=== PATIENT | female | born 1975 | race Caucasian/White ===

== ENCOUNTER 2023-07-25 10:43 | Outpatient (AMB) | payer OTHER, SELFPAY ==
[2023-07-25 10:54] VITALS: BP 118/70; PULSE 81; RESP 12; TEMP 36.1; O2SAT 99; BMI 31.8
--- NOTE | 2023-07-25 10:54 | A.OFFPC_ITS ---
Vital Signs 07/25/23 10:54 Height 5 ft 6 in Weight 197 lb 3 oz BMI 31.8 BP 118/70 Blood Pressure Location Rt brachial Position Sitting Respiration 12 Pulse 81 Pulse Source Pulse Oximeter Temp 97 F Temp Source Temporal Artery Scan Pulse Oximetry (%) 99 Oxygen Delivery Method Room Air Intake Visit Reasons: est care Intake Note: Patient states that shes a smoker and has recently been experiencing pressure in lungs and has been nervous when it does occur. Patient states that left heel turns purplish red and she doesnt not know why. Patient would like to to get into treatment for smoking as well. Patient would prefer to geth the nictonie patches to help quit smoking. Wet Silk Hanger Required: No Accompanied by: Self / Same As Patient Allergies Seasonal Allergies Allergy (Mild, Verified 07/25/23 11:01) Itchy Eyes Tobacco use date assessed: 07/25/23 Dental Screening Dental Screen Date: 07/25/23 Did you have a dental visit in the last 12 months?: No Did you have a dental problem in the last 6 months where you did not have access to dental care?: No HPI est care HPI Details New patient Prior PCP:?Long ago/unknown Last office visit/CPE: years Acute issue(s): Smoker Chest pressure in bed PMHx: Asthma, history of plantar fasciitis SurgHx: [facility] FHx: Dad: Skin CA, HLD. Mom: HLD, ?Thyroid, Skin CA. Sister: Psychiatric issues. SocHx: Smoker - 1 ppd then 1/2 ppd since early 2022. EtOH 3-4 days a week. No Drugs. 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 1. Little interest or pleasure in doing things: not at all 2. Feeling down, depressed, or hopeless: several days 3. Trouble falling or staying asleep, or sleeping too much: more than half the days 4. Feeling tired or having little energy: more than half the days 5. Poor appetite or overeating: not at all 6. Feeling bad about yourself - or that you are a failure or have let yourself or your family down: several days 7. Trouble concentrating on things, such as reading the newspaper or watching television: not at all 8. Moving or speaking so slowly that other people could have noticed. Or the opposite - being so fidgety or restless that you have been moving around a lot more than usual: not at all 9. Thoughts that you would be better off or of hurting yourself in some way: not at all Total score: 6 Source: Developed by Drs. Carrington Cabrera, Alanna Lemos, Tiburcio Bowser and colleagues, with an educational priya from [employer]. Thrive Questionnaire I am a: Patient What is your living situation today?: I have a steady place to live Within the past 12 months, did the food you bought not last and you didn't have the money to get more?: Never true Within the past 12 months, did you worry whether your food would run out before you got money to buy more?: Never true Do you have trouble paying for medicines?: No Do you have trouble getting transportation to medical appointments?: No Do you have trouble paying your heating and electricity bill?: No Do you have trouble taking care of your child, family member or friend?: No Do you have trouble with day-to-day activities such as bathing, preparing meals, shopping, managing finances, etc.?: No Are you currently unemployed and looking for a job?: No Are you interested in more education?: No AUDIT C Alcohol Use Questionnaire (AUDIT-C) 1. How often do you have a drink containing alcohol?: 4 or more times a week 2. How many drinks containing alcohol do you have on a typical day when you are drinking?: 5 or 6 3. How often do you have six or more drinks on one occasion?: Weekly Total Score: 9 MARYAM-7 AMB Questionnaire MARYAM-7 Date MARYAM - 7 assessed: 07/25/23 Feeling nervous, anxious, or on edge: 1 = Several days Not being able to stop or control worryin = Several days Worrying too much about different things: 1 = Several days Trouble relaxin = Several days Being so restless that it is hard to sit still: 0 = Not at all Becoming easily annoyed or irritable: 0 = Not at all Feeling afraid as if something awful might happen: 0 = Not at all Total MARYAM-7 score (0-4 normal; 5-9 mild; 10-14 moderate; 15-21 severe): 4 Source: Developed by Drs. Carrington Cabrera, Alanna Lemos, Tiburcio Bowser and colleagues, with an educational priya from [employer]. ACT Questionnaire In the past 4 weeks, how much of the time did your asthma keep you from getting as much done at work, school or at home?: None of the time During the past 4 weeks, how often have you had shortness of breath?: 1-2 times a week During the past 4 weeks, how often did your asthma symptoms wake you up at night or earlier than usual in the morning?: Once a week During the past 4 weeks, how often have you had to use your rescue inhaler or nebulizer medication?: Not at all How would you rate your asthma control during the past 4 weeks?: Well controlled Score: 21 Review of Systems Const Denies chills, Denies fatigue, Denies fever(s), Denies headache(s) and Denies weakness ENT Denies dizziness and Denies headache(s) Card Denies chest pain, Denies lightheadedness, Denies dyspnea and Denies other (Palpitations) Resp Denies cough, Denies dyspnea, Denies wheezing and Denies other ( shortness of breath) Musc Details: L heel pain Denies numbness and Denies tingling Neuro Denies dizziness, Denies headache(s), Denies numbness, Denies tingling, Denies paresthesias and Denies weakness Psych Denies anxiety and Denies depression Endo Denies fatigue Aller/Immun Denies wheezing Physical exam (Primary Care) Vital Signs: Last Vital Signs Temp 97 F 07/25/23 10:54 Pulse 81 07/25/23 10:54 Resp 12 07/25/23 10:54 BP 118/70 07/25/23 10:54 Pulse Ox 99 07/25/23 10:54 Oxygen Delivery Method Room Air 07/25/23 10:54 BMI result Body Mass Index 31.8 Tobacco/Smoking Status: Tobacco use Status Tobacco use date assessed 07/25/23 07/25/23 11:05 Patient Tobacco Use Status Current everyday Tobacco 07/25/23 11:05 Tobacco use type Cigarette 07/25/23 11:05 e-Cigarette/Vaping Use Never Used 07/25/23 11:05 PHQ-9: PHQ-9 Score PHQ-9: Total score 6 07/25/23 11:17 Const General: no acute distress and well developed Nutritional Appearance: well nourished Orientation/consciousness: patient oriented x3 HENMT Head: Yes normocephalic and Yes atraumatic Eyes General: appearance normal, both eyes and all related structures Pupils: Equal, round and reactive pupils present EOM: EOMs intact bilaterally Resp Other: Distant breath sounds Effort & Inspection: normal respiratory effort Cardio Rate: regular rate Rhythm: regular rhythm Heart sounds: S1 normal heart sound present, S2 normal heart sound present, no gallops, no murmurs and no rubs Neuro General: patient oriented x3 and gait normal Cranial nerves: Yes Equal, round and reactive pupils present Psych Affect: normal affect Assessment and Plan Assessment & Plan (1) Smoker: Code(s): F17.200 - Nicotine dependence, unspecified, uncomplicated Plan: Encouraged cessation She can use nicotine patches and advised we work at weaning these down to the lowest does as soon as possible. She is planning a quit date in July Checking chest x-ray (2) Asthma: Code(s): J45.909 - Unspecified asthma, uncomplicated Plan: As above, advised smoking cessation Continue Ventolin as needed (3) Chest pressure: Code(s): R07.89 - Other chest pain Plan: Patient gets some chest pressure which does not seem to be associated with exertion. EKG: Normal sinus rhythm, normal axis, no hypertrophy, no ST-T-wave changes Check chest x-ray (4) Pain of left heel: Code(s): M79.672 - Pain in left foot Plan: Check x-ray Patient has lay out inspector to has seen her for some plantar fasciitis in the past and she could follow up with her if needed. (5) Laboratory exam ordered as part of routine general medical examination: Code(s): Z00.00 - Encounter for general adult medical examination without abnormal findings Plan: Check labs Orders: Orders Lipid Panel Today Z00.00 - Encounter for general adult medical examination without abnormal findings TSH reflex Free T4 Today Z00.00 - Encounter for general adult medical examination without abnormal findings XR chest 2V Today F17.200 - Nicotine dependence, unspecified, uncomplicated, R09.89 - Other specified symptoms and signs involving the circulatory and respiratory systems Comprehensive [place]. Panel Fast Today Z00.00 - Encounter for general adult medical examination without abnormal findings Microalbumin, Random (w Creat) Today I10 - Essential (primary) hypertension UA and rflx microscopic Today Z00.00 - Encounter for general adult medical examination without abnormal findings XR foot LT min 3V Today M79.672 - Pain in left foot Complete Blood Count Auto Diff Today Z00.00 - Encounter for general adult medical examination without abnormal findings Medications: New nicotine 1 patch topical DAILY 28 days 28 ea 3RF albuterol sulfate 90 mcg/actuation (Ventolin HFA) 2 puffs inhalation Q4-6H PRN 8.5 grams 3RF shortness of breath or wheezing 30 days Coding Level of Care Code New Pt Level 4 (99516) Diagnoses Smoker F17.200 Asthma J45.909 Chest pressure R07.89 Pain of left heel M79.672 Laboratory exam ordered as part of routine general medical examination Z00.00
== END 2023-07-25 12:13 | disposition home or self-care (01) ==
PROVIDERS: PCP Hospitalist; Visit Provider Family Medicine
DX: F17.200 Nicotine dependence, unspecified, uncomplicated (principal); J45.909 Unspecified asthma, uncomplicated; R07.89 Other chest pain; M79.672 Pain in left foot; Z00.00 Encounter for general adult medical examination without abnormal findings
CPT/HCPCS: 99204

== ENCOUNTER 2023-07-25 12:17 | Outpatient (REF) | payer OTHER, SELFPAY ==
[2023-07-25 14:07] LABS: MANUAL DIFF FLAG NO
[2023-07-25 14:17] LABS: Basophils Percent Auto 0.4 % (0-2); Eosinophils Absolute Auto 0.1 X10*3/uL (0.0-0.4); Eosinophils Percent Auto 1.6 % (0-4); Hematocrit 42.8 % (37.0-47.0); Hemoglobin 14.4 g/dl (12.0-16.0); Imm Gran Abs Auto 0.02 X10*3/uL (0.00-0.03); Imm Gran Pct Auto 0.3 % (0.0-0.4); Lymphocytes Absolute Auto 2.3 X10*3/uL (1.2-4.9); Lymphocytes Percent Auto 28.8 % (20-40); Mean Corpuscular HGB Conc 33.6 g/dl (31.0-35.0); Mean Corpuscular Hemoglobin 32.5 pg (27.0-33.0); Mean Corpuscular Volume 96.6 fL (80.0-98.0); Mean Platelet Volume 11.3 fL (9.4-12.3); Monocytes Absolute Auto 0.6 X10*3/uL (0.1-1.2); Monocytes Percent Auto 7.8 % (2-11); Neutrophils Absolute Auto 4.9 x10*3/uL (2.0-8.3); Neutrophils Percent Auto 61.1 % (45-73); Platelet Count 275 X10*3/uL (160-400); Red Blood Count 4.43 X10*6/uL (4.20-5.50); Red Cell Distribution Width 13.2 % (11.0-16.0)
[2023-07-25 14:21] LABS: Appearance Urine Clear; Color Urine Yellow; Glucose Urine UA Negative (Negative); Leukocyte Esterase Urine Negative (Negative); Nitrite Urine Negative (Negative); PH 7.5 (5.0-9.0); Urine Blood Negative (Negative); Urine Ketones Negative (Negative); Urine Protein Negative (Neg-Trace)
[2023-07-25 14:35] LABS: Alanine Aminotransferase 16 U/L (0-31); Albumin Level 4.5 g/dL (3.5-5.0); Alkaline Phosphatase 87 U/L (39-117); Anion Gap 14 (12-20); Aspartate Amino Transferase 22 U/L (5-31); Bilirubin Total 0.6 mg/dL (0.0-1.0); Blood Urea Nitrogen 9 mg/dL (9-16); Calcium 9.7 mg/dL (8.4-10.2); Carbon Dioxide 25 mmol/L (22-29); Chloride 105 mmol/L (96-108); Cholesterol 197 mg/dL (<200); Estimated Glomerular Filt Rate > 60; Glucose Fasting 101 mg/dL (60-99); HDL Cholesterol 93 mg/dL (>40); LDL Cholesterol Calculated 91 mg/dL (<100); Potassium 4.6 mmol/L (3.3-5.1); Sodium 139 mmol/L (135-145); Total Protein 7.4 g/dL (6.5-8.0); Triglycerides 68 mg/dL (<150)
[2023-07-25 14:51] LABS: Creatinine Urine 41.96 mg/dL; Microalbumin Urine < 5.0 mg/L
[2023-07-25 14:55] LABS: TSH reflex Free T4 1.33 uIU/mL (0.32-4.0)
== END 2023-07-25 12:18 | disposition home or self-care (01) ==
LOC: HO.WFDLDS 12:17
PROVIDERS: Visit Provider Family Medicine
DX: Z00.00 Encounter for general adult medical examination without abnormal findings (principal); I10 Essential (primary) hypertension
CPT/HCPCS: 36415; 80053; 80061; 81003; 82570; 84443; 85025

== ENCOUNTER 2023-10-17 13:46 | Outpatient (AMB) | payer OTHER, SELFPAY ==
--- NOTE | 2023-10-17 13:50 | A.OFFPC_ITS ---
Vital Signs 10/17/23 13:53 Height 5 ft 6 in Weight 193 lb 8 oz BMI 31.2 BP 118/76 Blood Pressure Location Rt brachial Respiration 16 Pulse 72 Pulse Source Pulse Oximeter Pulse Oximetry (%) 98 Intake Visit Reasons: CPE with f/u labs and health maintenanc Intake Note: Patient is here to follow up on labs, and x-rays. Allergies Seasonal Allergies Allergy (Mild, Verified 10/17/23 13:58) Itchy Eyes Tobacco use date assessed: 10/17/23 HPI CPE with f/u labs and health maintenanc HPI Details 48 y/o female presents for a CPE with f/ u labs and health maintenance. Labs were drawn 07/25/23. Reviewed labs with pt. Elevated fasting glucose of 101. Triglyceridides 68. TC 197. LDL 91. HDL 93. Chest x-ray 08/01/23 was fine. 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 Carrington Cabrera, Alanna Lemos, Tiburcio Bowser and colleagues, with an educational priya from [employer]. Review of Systems Const Denies chills, Denies fatigue, Denies fever(s), Denies headache(s) and Denies weakness Eyes Denies change in vision ENT Denies dizziness, Denies headache(s), Denies hearing loss, Denies nasal congestion, Denies sinus pain, Denies sinus pressure and Denies sore throat Card Denies chest pain, Denies lightheadedness, Denies dyspnea and Denies other (palpitations) Resp Denies cough, Denies dyspnea and Denies wheezing GI Denies abdominal pain, Denies melena, Denies hematochezia, Denies change in bowel habits, Denies dyspepsia and Denies nausea Denies hematuria and Denies dysuria Musc Denies abnormal gait, Reports back pain, Denies myalgias, Denies arthralgias, Denies numbness and Denies tingling Skin/Breast Denies rash, Denies unusual bruising and Denies wounds Neuro Denies abnormal gait, Denies dizziness, Denies headache(s), Denies memory loss, Denies numbness, Denies Sensory deficit (Neuro), Denies tingling and Denies weakness Psych Denies anxiety, Denies depression and Denies memory loss Endo Denies cold intolerance, Denies fatigue, Denies heat intolerance, Denies polyd ipsia and Denies polyuria [place]/Lymph Denies easy bleeding and Denies easy bruising Aller/Immun Denies wheezing Physical exam (Primary Care) Vital Signs: Last Vital Signs Pulse 72 10/17/23 13:53 Resp 16 10/17/23 13:53 BP 118/76 10/17/23 13:53 Pulse Ox 98 10/17/23 13:53 BMI result Body Mass Index 31.2 Tobacco/Smoking Status: Tobacco use Status Tobacco use date assessed 10/17/23 10/17/23 14:01 Patient Tobacco Use Status Current everyday Tobacco 10/17/23 13:52 Tobacco use type Cigarette 10/17/23 13:52 e-Cigarette/Vaping Use Never Used 10/17/23 13:52 Const General: no acute distress, well developed, alert and awake Nutritional Appearance: well nourished Orientation/consciousness: patient oriented x3 HENMT Head: Yes normocephalic and Yes atraumatic Ears: hearing grossly normal bilaterally and TM's normal bilaterally General nose exam: Normal external nose present and Normal nares present Mouth: Normal oral and palatal mucosa present and moist mucous membranes Teeth and gingiva: dentition normal Throat: Yes posterior oropharynx normal Eyes General: appearance normal, both eyes and all related structures Pupils: Equal, round and reactive pupils present and Pupil accommodation reflex normal EOM: EOMs intact bilaterally Neck Neck: Yes normal visual inspection, Yes no lymphadenopathy and Yes trachea midline Thyroid: Thyroid normal Carotids: no bruits Lymphatic: no lymphadenopathy noted Chest Chest palpation & inspection: normal inspection of the chest Resp Effort & Inspection: normal respiratory effort Auscultation: clear to auscultation bilaterally Cardio Rate: regular rate Rhythm: regular rhythm Heart sounds: S1 normal heart sound present, S2 normal heart sound present, no gallops, Murmur heart sound present (2/6 Murmur loudest over the mitral and aortic region ) and no rubs Bruits: no abdominal aortic bruits and no carotid bruits GI Palpation (GI): No Abdominal aortic bruit present, Soft to palpation, nontender, No hepatosplenomegaly present and No Rebound tenderness present Auscultation: normal bowel sounds General: Yes no CVA tenderness Back/Spine/Pelvis Back: no CVA tenderness Cervical Spine: cervical ROM normal and No Cervical spine tenderness Thoracic/Lumbar Spine: thoraco-lumbar ROM normal, No pain with thoraco-lumbar ROM, No thoracic spinal tenderness and No lumbar spinal tenderness Skin Lesions: no lesions Rashes: no rashes Trauma: no lacerations or abrasions Wounds: no wounds Nails: normal Neuro General: patient oriented x3 Cranial nerves: Yes Equal, round and reactive pupils present Cognition (Neuro): normal cognition Gait exam (Neuro): Normal gait present Motor exam (neuro): 5/5 motor strength present throughout Sensory Exam: No Sensory deficit (Neuro) Deep tendon reflexes (DTR's): Right patellar reflex intensity grade: 2+ and Left patellar reflex intensity grade: 2+ Extrem General: Yes normal to inspection and No edema Psych Appearance: grossly normal Affect: normal affect Attitude: cooperative Thought process: Normal thought process present Assessment and Plan Assessment & Plan (1) Adult general medical exam: Code(s): Z00.00 - Encounter for general adult medical examination without abnormal findings Plan: 48-year-old?female?presents?for?complete?physical?exam Encouraged?healthy?diet?with?active?lifestyle?and?plenty?of?exercise (2) Chest pressure: Code(s): R07.89 - Other chest pain Plan: This?has?resolved However,?she?does?have?a?grade?2/6?murmur?at?aortic?and?mitral?valve?region Checking?echocardiogram (3) Screening for cervical cancer: Code(s): Z12.4 - Encounter for screening for malignant neoplasm of cervix Plan: Followed?by?numerical control lathe operator?and?has?an?upcoming?appointment?in?October (4) Breast cancer screening by mammogram: Code(s): Z12.31 - Encounter for screening mammogram for malignant neoplasm of breast Plan: Patient?has?mammogram?scheduled?in?October?via?numerical control lathe operator (5) Low back pain: Code(s): M54.50 - Low back pain, unspecified Plan: Referred?for?physical?therapy Can?use?Tylenol?and?topical?NSAID (6) Screening for colon cancer: Code(s): Z12.11 - Encounter for screening for malignant neoplasm of colon Plan: Referred?to?Gastroenterology (7) Screening for colon cancer: Code(s): Z12.11 - Encounter for screening for malignant neoplasm of colon (8) Murmur: Code(s): R01.1 - Cardiac murmur, unspecified Plan: 11/05?murmur?heard?over?aortic?and?mitral?region Echocardiogram?ordered Orders: Orders PT Evaluation and Treatment Today M54.50 - Low back pain, unspecified CA echo transthoracic complete Today R01.1 - Cardiac murmur, unspecified Referrals Gastroenterology Referral Z12.11 - Encounter for screening for malignant neoplasm of colon Coding Level of Care Code Est Pt Level 3 (21997) Est Pt Prev Care 40-64y(81153) Diagnoses Adult general medical exam Z00.00 Chest pressure R07.89 Screening for cervical cancer Z12.4 Breast cancer screening by mammogram Z12.31 Low back pain M54.50 Screening for colon cancer Z12.11 Murmur R01.1
[2023-10-17 13:53] VITALS: BP 118/76; PULSE 72; RESP 16; O2SAT 98; BMI 31.2
== END 2023-10-17 15:00 | disposition home or self-care (01) ==
PROVIDERS: PCP Family Medicine; Visit Provider Family Medicine
DX: Z00.00 Encounter for general adult medical examination without abnormal findings (principal); R01.1 Cardiac murmur, unspecified; M54.50 Low back pain, unspecified
CPT/HCPCS: 99213; 99396

== ENCOUNTER 2023-11-03 09:21 | Outpatient (AMB) | payer OTHER, SELFPAY ==
[2023-11-03 09:24] VITALS: BP 122/72; PULSE 90; O2SAT 99; BMI 31.3
--- NOTE | 2023-11-03 09:24 | MHC.PC.OV ---
Vital Signs 11/03/23 09:24 Height 5 ft 6 in Weight 194 lb BMI 31.3 BP 122/72 Blood Pressure Location Lt brachial Position Sitting Pulse 90 Pulse Source Pulse Oximeter Pulse Oximetry (%) 99 Oxygen Delivery Method Room Air Intake Visit Reasons: ? UTI Intake Note: Patient is here with UTI for 3-4 days, she states she has symptoms of frequecy, and a little burning. Allergies Seasonal Allergies Allergy (Mild, Verified 11/03/23 09:29) Itchy Eyes Tobacco use date assessed: 11/03/23 HPI ? UTI HPI Details 48 y/o female presents with ? UTI. Pt reports symptoms x3-4 days. She reports urinary frequency and some dysuria. 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 Carrington Cabrera, Alanna Lemos, Tiburcio Bowser and colleagues, with an educational priya from [employer]. Review of Systems Const Denies chills, Denies fatigue, Denies fever(s), Denies headache(s) and Denies weakness ENT Denies dizziness and Denies headache(s) Card Denies dyspnea Resp Denies cough, Denies dyspnea, Denies wheezing and Denies other (shortness of breath) Details: Urinary frequency Reports dysuria Musc Denies numbness and Denies tingling Neuro Denies dizziness, Denies headache(s), Denies numbness, Denies tingling and Denies weakness Psych Denies anxiety and Denies depression Endo Denies fatigue Aller/Immun Denies wheezing Physical exam (Primary Care) Vital Signs: Last Vital Signs Pulse 90 11/03/23 09:24 BP 122/72 11/03/23 09:24 Pulse Ox 99 11/03/23 09:24 Oxygen Delivery Method Room Air 11/03/23 09:24 BMI result Body Mass Index 31.3 Tobacco/Smoking Status: Tobacco use Status Tobacco use date assessed 11/03/23 11/03/23 09:33 Patient Tobacco Use Status Current everyday Tobacco 11/03/23 09:33 Tobacco use type Cigarette 11/03/23 09:33 e-Cigarette/Vaping Use Never Used 11/03/23 09:33 Const General: well developed; No acute distress Nutritional Appearance: well nourished Orientation/consciousness: patient oriented x3 HENMT Head: Yes normocephalic and Yes atraumatic Eyes General: appearance normal, both eyes and all related structures Pupils: Equal, round and reactive pupils present EOM: EOMs intact bilaterally Resp Effort & Inspection: normal respiratory effort Neuro General: patient oriented x3 and gait normal Cranial nerves: Yes Equal, round and reactive pupils present Psych Affect: normal affect Results AMB Urinalysis Dipstick UR Leukocytes Negative Last Edit by Tia Mortensen CMA on 11/03/23 09:39 UR Nitrite Negative Last Edit by Tia Mortensen CMA on 11/03/23 09:39 UR Urobilinogen Normal Last Edit by Tia Mortensen CMA on 11/03/23 09:39 UR Protein 30 Last Edit by Tia Mortensen CMA on 11/03/23 09:39 UR Ph 6.0 Last Edit by Tia Mortensen CMA on 11/03/23 09:39 UR Blood Moderate Last Edit by Tia Mortensen CMA on 11/03/23 09:39 UR Specific [place] 1.030 Last Edit by Tia Mortensen CMA on 11/03/23 09:39 UR Ketone Negative Last Edit by Tia Mortensen CMA on 11/03/23 09:39 UR Bilirubin Negative Last Edit by Tia Mortensen CMA on 11/03/23 09:39 UR Glucose Negative Last Edit by Tia Mortensen CMA on 11/03/23 09:39 Assessment and Plan Assessment & Plan (1) Dysuria: Code(s): R30.0 - Dysuria Plan: Symptoms?with?urine?dip?are?suspicious?for?UTI. Start?Macrobid Hydrate?well Will?send?urine?for?urinalysis?with?culture?and?sensitivities. Orders: Orders Urine Culture Today R30.0 - Dysuria AMB Urinalysis Dipstick Today R30.0 - Dysuria UA and rflx microscopic Today R30.0 - Dysuria, Z00.00 - Encounter for general adult medical examination without abnormal findings Medications: New nitrofurantoin monohyd/m-cryst 100 mg (Macrobid) must administer with a meal/food 100 mg PO BID 14 caps 0RF 7 days Coding Level of Care Code Est Pt Level 3 (05122) Diagnoses Dysuria R30.0
== END 2023-11-03 09:43 | disposition home or self-care (01) ==
PROVIDERS: PCP Family Medicine; Visit Provider Family Medicine
DX: R30.0 Dysuria (principal)
CPT/HCPCS: 81002; 99213

== ENCOUNTER 2023-11-03 09:43 | Outpatient (REF) | payer OTHER, SELFPAY | END 2023-11-03 09:44 | disposition home or self-care (01) | LOC: HO.LAB 09:43 | PROVIDERS: Visit Provider Family Medicine | DX: Z00.00 Encounter for general adult medical examination without abnormal findings (principal); R30.0 Dysuria | CPT/HCPCS: 81001; 87086; 87088; 87186 ==

== ENCOUNTER → 2023-11-14 10:39 | Outpatient (REF) | payer OTHER, SELFPAY ==
--- NOTE | 2023-11-14 10:41 | CA_ITS ---
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 The calculated ejection fraction is 66% by biplane method. - No obvious valvular pathology seen on this study. Findings Left Ventricle Normal left ventricular cavity size. There is normal left ventricular wall thickness. The left ventricular systolic function is normal. The calculated ejection fraction is 66% by biplane method. There is no evidence of regional wall motion abnormalities. Diastolic function is normal for age. LV peak GLS -21.4%. Right Ventricle Normal right ventricular cavity size and systolic function. Atria Both atria are normal in size. Aortic Valve There is a normal trileaflet aortic valve. There is no aortic valve stenosis. There is no aortic valve regurgitation. Mitral Valve The mitral valve appears normal. There is no mitral valve regurgitation. There is no mitral valve stenosis. Pulmonic Valve The pulmonic valve is likely normal. Tricuspid Valve Normal tricuspid valve structure. There is trace tricuspid valve regurgitation. There is no evidence of pulmonary hypertension. Great Vessels The aorta was not well visualized. The aortic annulus is normal in size. Venous The inferior vena cava is normal in size and collapses greater than 50% with inspiration. Pericardium/Pleural There is no evidence of pericardial effusion. Prior Study Comparison No prior study available for comparison. Recommendations, Care & Conclusions No obvious valvular pathology seen on this study. Measurements 2D Linear Measurements IVSd: 0.66 0.6-0.9/0.6-1.0 cm LVIDd: 5.23 3.9-5.3/4.2-5.9 cm LVIDd Index: 2.67 2.4-3.2/2.2-3.1 cm/m2 LVIDs: 2.83 2.0-3.6 cm LVPWd: 0.73 0.7-1.1 cm LA Diam: 3.60 2.7-3.8/3.0-4.0 cm LAIDs Index: 1.84 1.5-2.3 cm/m2 LV Mass: 153.49 67-162/88-224 g LV Mass Index: 78.31 43-95/49-115 g/m2 LVOT Diam: 2.00 3.0+(-)1.3 cm 2D Systolic Function EF 4C: 64.60 >55% EF 2C: 66.40 >55% EF BiP: 65.90 >55% Mitral Valve MV Pk E: 0.87 MV PK A: 0.64 MV Decel Time: 200.00 E/A: 1.40 E'Lateral: 12.50 E'Medial: 9.79 E/E' Med: 8.90 E/E' Lat: 7.00 PHT: 58.00 MVA PHT: 3.79 Decel Mckinley: 4.37 Aortic Valve AoV Pk Smith: 1.73 AoV Mn Smith: 1.15 AoV VTI: 0.41 AoV Pk Grad: 12.00 Aov Mn Grad: 6.00 BOBBI Cont.VTI: 2.12 LVOT LVOT Pk Smith: 1.17 LVOT Mn Smith: 0.77 LVOT VTI: 0.28 LVOT Pk Grad: 5.00 LVOT Mn Grad: 3.00 LVOT Diam: 2.00 LVOT Area: 3.14 Diastolic Function MV Pk E: 0.87 MV Pk A: 0.64 E/A: 1.40 E'Medial: 9.79 E/E' Med: 8.90 E' Laterial: 12.50 E/E' Lat: 7.00 Right Ventricle TAPSE (mm): 26.40 TVS' Smiht: 12.60 Tricuspid Valve TR Pk Smith: 2.00 TR Pk Grad: 16.00 RA Press: 3.00 RVSP: 19.00 Great Vessels Aorta Sinus of Valsalva: 3.20 2.0-3.5 cm Ao Asc: 3.00 2.1-3.4 cm Pulmonary Valve PV Pk Smith: 1.15 Peak PV Grad: 5.00 Updated in Other Vendor System with Status of Final Abhijeet Santos MD electronically signed on 11/14/2023 2:19:56 PM with status of Final
== END ==
LOC: HO.CARD 10:39
PROVIDERS: PCP Family Medicine; Visit Provider Family Medicine
DX: R01.1 Cardiac murmur, unspecified (principal)
CPT/HCPCS: 93306; 93356

== ENCOUNTER → 2023-11-14 10:41 | Outpatient (BNV) | payer OTHER, SELFPAY | PROVIDERS: PCP Family Medicine; Visit Provider Internal Medicine | DX: R01.1 Cardiac murmur, unspecified (principal) | CPT/HCPCS: 93306 ==

== ENCOUNTER 2023-11-28 16:04 | Outpatient (AMB) | payer OTHER, SELFPAY ==
--- NOTE | 2023-11-28 15:59 | MHC.PC.OV ---
Intake Visit Reasons: follow up murmur,back pain Intake Note: Patient is following up on heart murmur and back pain. Allergies Seasonal Allergies Allergy (Mild, Verified 11/28/23 16:00) Itchy Eyes Tobacco use date assessed: 11/28/23 HPI follow up murmur,back pain HPI Details 48 y/o female presents to f/u murmur, back pain via telemedicine. Had ordered an echocardiogram. Also ordered physical therapy for her back. Echocardiogram 11/14/23 showed no obvious pathology. 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 Carrington Cabrera, Alanna Lemos, Tiburcio Bowser and colleagues, with an educational priya from [employer]. Review of Systems Const Denies chills, Denies fatigue, Denies fever(s), Denies headache(s) and Denies weakness ENT Denies dizziness and Denies headache(s) Card Denies dyspnea Resp Denies cough, Denies dyspnea, Denies wheezing and Denies other (shortness of breath) Musc Denies numbness and Denies tingling Neuro Denies dizziness, Denies headache(s), Denies numbness, Denies tingling and Denies weakness Psych Denies anxiety and Denies depression Endo Denies fatigue Aller/Immun Denies wheezing Physical exam (Primary Care) Tobacco/Smoking Status: Tobacco use Status Tobacco use date assessed 11/28/23 11/28/23 16:01 Patient Tobacco Use Status Current everyday Tobacco 11/28/23 16:01 Tobacco use type Cigarette 11/28/23 16:01 e-Cigarette/Vaping Use Never Used 11/28/23 16:01 Telehealth Telehealth Location of provider rendering services: practice address Location of patient: address on file Patient Identification confirmed using: Name, : Yes Telehealth method: voice only Patient verbally consented to treatment: Yes Patient verbally consented to billing insurance company: Yes Patient informed of any privacy concerns related to visit: Yes Minutes spent on Phone/Video with Pt.: 6 Assessment and Plan Assessment & Plan (1) Murmur: Code(s): R01.1 - Cardiac murmur, unspecified Plan: Faint?/?murmur. Echocardiogram?shows?normal?ejection?fraction?and?valves Benign?murmur (2) Low back pain: Code(s): M54.50 - Low back pain, unspecified Plan: X-ray?showed?mild?degenerative?changes. Had?ordered?physical?therapy. She?says?that?she?is?gradually?improving?with?physical?therapy?and?wants?to?continue. Continue?PT.??Let?me?know?if?having?any?worsening?or?not?improving?fully. (3) Breast cancer screening by mammogram: Code(s): Z12.31 - Encounter for screening mammogram for malignant neoplasm of breast Plan: October?mammogram?showed?no?evidence?of?malignancy.??Recommended?annual?screening. Coding Level of Care Code Tele Est Pt Level 2 (06691) Diagnoses Murmur R01.1 Low back pain M54.50 Breast cancer screening by mammogram Z12.31
== END 2023-11-28 16:42 | disposition home or self-care (01) ==
LOC: HO.HMGFM 16:04
PROVIDERS: PCP Family Medicine; Visit Provider Family Medicine
DX: R01.1 Cardiac murmur, unspecified (principal); M54.50 Low back pain, unspecified; Z12.31 Encounter for screening mammogram for malignant neoplasm of breast; F17.210 Nicotine dependence, cigarettes, uncomplicated
CPT/HCPCS: 99212

== ENCOUNTER 2023-12-12 13:14 | Outpatient (AMB) | payer OTHER, SELFPAY ==
[2023-12-12 13:39] VITALS: BP 134/68; PULSE 78; BMI 31.2
--- NOTE | 2023-12-12 13:39 | MHC.OFFVIS ---
Intake Vital Signs 12/12/23 13:39 Height 5 ft 6 in Weight 193 lb 9.054 oz BMI 31.2 BP 134/68 Blood Pressure Location Rt brachial Position Sitting Pulse 78 Intake Visit Reasons: Colonoscopy Screening Intake Note: Patient presents to in office visit today as a new patient for colonoscopy screening. CC: Patient has never had a colonoscopy done. Denies having any GI symptoms or concerns today. Allergies Seasonal Allergies Allergy (Mild, Verified 12/12/23 13:41) Itchy Eyes No Known Drug Allergies Allergy (Unknown, Verified 12/12/23 13:41) Unknown HPI Colonoscopy Screening HPI Details 48 year old? female here today for pre colonoscopy screening.? Patient was sent to us by her PCP.? This is her first colonoscopy screening.? Patient denies any gastrointestinal symptoms in the past or at present.? Denies any personal or family history of gastrointestinal disease, colon polyps, or cancer.? Patient never had anesthesia in the past except for wisdom teeth removal as a teenager.? Negative for history of sleep apnea.? Denies any history of cardiac, renal, pulmonary, or hepatic disease.?? No history of infectious? diseases like hepatitis A, B, C, HIV or tuberculosis.? Patient is not on any anticoagulation therapy. 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 Cognitive needs: No Hearing needs: No Vision needs: Yes Review of Systems Const Denies weight gain and Denies weight loss ENT Reports no additional complaints, Denies dysphagia and Denies odynophagia Card Reports no additional complaints Resp Reports no additional complaints GI Denies abdominal pain, Denies belching, Denies melena, Denies bloating, Denies change in bowel habits, Denies dysphagia, Denies excessive flatus, Denies dyspepsia, Denies heartburn, Denies diarrhea, Denies loose stools, Denies nausea, Denies odynophagia and Denies vomiting Musc Reports no additional complaints Neuro Reports no additional complaints Psych Reports no additional complaints Endo Reports no additional complaints Physical Exam Vital Signs: Last Vital Signs Pulse 78 12/12/23 13:39 BP 134/68 12/12/23 13:39 BMI result Body Mass Index 31.2 Const General: healthy appearing, no acute distress and well developed Nutritional Appearance: well nourished Orientation/consciousness: patient oriented x3 Resp Effort & Inspection: normal respiratory effort, able to speak in complete sentences, no tracheal deviation and symmetric chest movement Auscultation: clear to auscultation bilaterally Cardio Rate: regular rate GI Inspection: Yes normal to inspection and No distended Palpation (GI): Soft to palpation, not firm, nontender and No hepatosplenomegaly present Auscultation: normal bowel sounds General: Yes no CVA tenderness Back/Spine/Pelvis Back: no CVA tenderness Skin General skin exam: elasticity normal, turgor normal and dry skin Neuro General: patient oriented x3 Psych Appearance: grossly normal Mental Status: mental status grossly normal Assessment & Plan Assessment & Plan (1) Screening for colon cancer: Code(s): Z12.11 - Encounter for screening for malignant neoplasm of colon Plan Patient denies any GI, cardiac or respiratory symptoms.? Denies any history of sleep apnea.? No history infectious diseases in the past or present.? Not on any anticoagulation therapy.? No family or personal history of colon cancer or polyps.? Patient denies melena, hematochezia, unintentional weight loss or ribbon like stools.? Discussed at length the pre-procedure,? prep, diet & medications as well as what to expect prior, during and after the procedure.?? Stressed the importance of good bowel prep. ?Recommended the use of Vaseline or Calmoseptine OTC & baby wipes with bowel movements to promote comfort.? ?Patient verbalizes understanding and agrees to plan of care.? She was given the opportunity to ask questions and all questions answered.? We will see her after the procedure.? Medications: New bisacodyl (Dulcolax (bisacodyl)) take 4 tabs at noon the day before your colonoscopy 20 mg (4 x 5 mg) PO ONCE 1 day 4 tabs 0RF Z12.11 - Encounter for screening for malignant neoplasm of colon polyethylene glycol 3350 (Miralax) As directed by gastro[facility]ology [facility] at [facility] 238 grams PO ONCE 238 grams 0RF Z12.11 - Encounter for screening for malignant neoplasm of colon Coding Level of Care Code New Pt Level 3 (49125) Diagnoses Screening for colon cancer Z12.11 Time Spent (min) 40 Comment 30 minutes spent with patient and additional 10 minutes spent reviewing her records
== END 2023-12-12 14:01 | disposition home or self-care (01) ==
PROVIDERS: PCP Family Medicine; Visit Provider Nurse Practitioner Family
DX: Z12.11 Encounter for screening for malignant neoplasm of colon (principal); Z01.818 Encounter for other preprocedural examination
CPT/HCPCS: 99203

== ENCOUNTER → 2023-12-12 13:14 | Outpatient (BNVA) | payer OTHER, SELFPAY | PROVIDERS: PCP Family Medicine; Visit Provider Nurse Practitioner Family | DX: Z12.11 Encounter for screening for malignant neoplasm of colon (principal) | CPT/HCPCS: 99202 ==

== ENCOUNTER 2024-01-16 11:00 | Outpatient (RCR) | payer OTHER, SELFPAY ==
--- NOTE | 2023-11-09 10:06 | MHC.PT.EP ---
[facility] Office [place] [facility] [place] Office [address] [place] [address] Dr Vivian Machado [address] [phone] F: [phone] F: [phone] F: [phone] F: [phone] Physical Therapy Plan of Care Date of Evaluation: 11/09/23 Date of Surgery: NA Diagnosis: LOW BACK PAIN Assessment: Pt IS 48 YO F REFERRED TO PT FROM DR MARINO WITH LBP. Pt REPORTS CHRONIC BACK PAIN. PRESENTS WITH LIMITED TRUNK AND LE FLEXIBILITY, LIMITED CORE STRENGTH, PREFERENCE FOR EXTENSION AT THIS TIME. GOOD PT CANDIDATE TO ADDRESS THESE ISSUES WITH ST WORK, STRETCHING AND STRENGTHENING PROGRAM Frequency and Duration: The patient will be seen 2X/WK X 4 WKS Short Term Goals: 1. INCREASED AWARENESS POSTURE AND BACK CARE 2. LESS L L THIGH SXS 3. LESS GUARDED GT PATTERN Manager Pathology Goals: 1. INCREASED HS FLEXIBILITY AT LEAST 10 DEGREES B 2. I HEP WITH DC EX PLAN 3. DECREASED BACK PAIN AT LEAST 50% WITH ADLS 4. IMPROVED LEFI (42/80 SOC) Treatment Plan: Modalities to reduce pain, spasms and effusion. Manual therapy to restore motion and function. Therapeutic exercise to improve strength and flexibility. Neuromuscular re-education for posture and balance. Therapeutic activities to return to functional activities of daily living. Electronically signed by: LOI ESPITIA PT Please sign and return to therapist. Thank you for your referral.
--- NOTE | 2024-03-07 14:31 | MHC.PT.DC ---
[facility] [place] Office [place] Office [place] Office [address] Vivian Machado [address] [phone] F: [phone] F: [phone] F: [phone] F: [phone] Physical Therapy Discharge Report Diagnosis: LOW BACK PAIN Date of Surgery: NA Date of Evaluation: 11/09/23 Date of Discharge: 03/07/24 Treatments to Date: 10 Cancellations to Date: No Shows to Date: Discharge Status: Independent with HEP Patient Elected to Stop Discharge Summary: PER LAST 2 ASSESSMENTS; 01/16/24: Pt did benefit from review of HEP row/ext/ER band strengthening. Pt requesting to trial I HEP home program for a month and will come back for reassessment/anticipate transition to I HEP. 01/02/24: Pt doing well overall, progressed hip extension and hip abduction in standing. Pt challenged with unilateral knee bridge. NO FURTHER APPTS SCHEDULED BY Pt OF THIS DC DATE Electronically signed by: LOI ESPITIA PT Please sign and return to therapist. Thank you for your referral.
== END 2024-03-07 14:32 | disposition home or self-care (01) ==
LOC: HO.PTWFD 11:00
PROVIDERS: PCP Family Medicine; Visit Provider Family Medicine
DX: M54.50 Low back pain, unspecified (principal)
CPT/HCPCS: 97110; 97140; 97150; 97161; 97530; 97535

== ENCOUNTER 2024-05-07 09:39 | Day surgery (SDC) | payer OTHER, SELFPAY ==
--- NOTE | 2024-05-07 09:09 | MHC.SHP ---
Pre-Procedural Eval Section A - 24 Hr Update-Section A only Date of Service: 05/07/24 The patient is an INPATIENT: No The patient has been examined within 24 hours of the surgical procedure. The History & Physical has been completed within 30 days and I have reviewed it.: No Section B - Complete if H&P > 30 days Chief Complaint: colon cancer screening Relevant Family History (Specify if Yes): No Relevant Social History: Tobacco Use Present Medications: see Short Stay Collaborative assessment Medical History: Significant History (asthma, smoker) History of Previous Operations: Relevant previous surgery/procedure and date(s) ([place] teeth extracted) Allergies: Allergies Allergy/AdvReac Type Severity Reaction Status Date / Time Seasonal Allergies Allergy Mild Itchy Eyes Verified 12/12/23 13:41 No Known Drug Allergies Allergy Unknown Unknown Verified 12/12/23 13:41 Review of Systems Sugical H&P ROS: Negative: Constitution, Cardiovascular, Respiratory and Gastrointestinal Exam Surgical H&P Exam: Normal: Heart, Normal: Lungs, Normal: Extremities and Normal: Abdomen Plan Diagnosis/Plan: Unchanged I have reviewed the history and physical and performed a pertinent physical examination on my patient. No changes have occurred unless specified. Time Spent With Patient Time: Total time managing care of this patient today ____ minutes.
[2024-05-07 10:03] VITALS: BP 138/75; PULSE 72; RESP 16; TEMP 36.2; O2SAT 96; BMI 29.9
[2024-05-07] MEDS: Lactated Ringers 1,000 ML 100 ML IVCONT (10:20)
[2024-05-07 10:24] LABS: UPreg QC Valid YES; Urine Pregnancy NEGATIVE (NEGATIVE)
--- NOTE | 2024-05-07 10:59 | P.CONAN_ITS ---
[facility] Active Problems Active Problems: All Active Problems Dysuria (Acute) Screening for colon cancer (Acute) Low back pain (Acute) Murmur (Acute) Breast cancer screening by mammogram (Acute) Screening for cervical cancer (Acute) Elevated fasting glucose (Acute) Adult general medical exam (Acute) Pain of left heel (Acute) Smoker (Acute) Asthma (Acute) Chest pressure (Acute) Laboratory exam ordered as part of routine general medical examination (Acute) Family History Family history of problems with anesthesia: No Surgical History Surgical History [place] teeth extracted History of Problems with Anesthesia: No Social History Social History Housing: House Patient Tobacco Use Status: Current everyday Tobacco user Tobacco use type: Cigarette Cigarette Packs Per Day: 0.5 Cigarettes Per Day: 6 Years Smoked: 31 e-Cigarette/Vaping Use: Never Used Use of substances other than those prescribed or required for medical reasons: No Are you DNR?: No Advance Directives: No Advance Directives Information Provided: Yes service: No Current occupational status: employed 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 Cognitive needs: No Hearing needs: No Vision needs: Yes Meds Allergies Allergy/AdvReac Type Severity Reaction Status Date / Time Seasonal Allergies Allergy Mild Itchy Eyes Verified 12/12/23 13:41 No Known Drug Allergies Allergy Unknown Unknown Verified 12/12/23 13:41 Active Medications: Current Medications Lactated Ringer's (Lr) 1,000 mls @ 100 mls/hr IVCONT .Q10H PATRIC Last Admin: 05/07/24 10:20 Dose: 100 mls/hr Exam Height,Weight and Vital Signs: Height 5 ft 7 in Weight 86.727 kg Last Vital Signs Temp 97.2 F 05/07/24 10:03 Pulse 72 05/07/24 10:03 Resp 16 05/07/24 10:03 BP 138/75 05/07/24 10:03 Pulse Ox 96 05/07/24 10:03 O2 Del Method Room Air 05/07/24 10:03 Pertinent Lab Results Pertinent Lab Results: Laboratory Tests 05/07/24 10:01 Urine Test NEGATIVE Airway Mallampati Class: II TM Dist: >3cm Neck ROM: Full Assessment and Plan Assessment Anesthesia Assessment: Anesthesia Plan Discussed and Chart Reviewed Final Anesthetic Review Family History of Problems with Anesthesia: No History of Problems with Anesthesia: No NPO: Yes ASA Class: II Final Preanesthetic Review: No Changes in Pt Med Stat, Meds/Allgs Chart Reviewed, Consent Obtained/Reviewed and Anes Risks/Benef Reviewed Patient Risk: Low Procedure Risk: Low Anesthetic Plan Anesthetic Plan: TIVA Disposition: Standard PACU
--- NOTE | 2024-05-07 11:39 | HO.OPN-COLON ---
Colonoscopy Operative Note Operative Note Date of Service: 05/07/24 Narrative: COLONOSCOPY TILL CECUM WITH BIOPSIES Pre-op diagnosis: Colon cancer screening (First colonoscopy) Post-op diagnosis:? Colon polyps, Diverticulosis, hemorrhoids Endoscopist:? Deidre Renee MD Anesthesia:?MAC Consent: Indications for the procedure and potential complications of bleeding, perforation, reaction to medications and missed diagnosis were discussed with the patient and informed consent was obtained. Instrument: Olympus PCF H 190 L variable stiffness pediatric colonoscope Monitoring: Vital signs and clinical assessment, intermittent blood pressure monitoring, continuous EKG monitoring, Pulse oximetry and Carbon Dioxide monitoring were done throughout the procedure. Please see anesthesia flowsheet. Colon withdrawl time was 16 minutes. Procedure: The patient was placed in the left lateral decubitis position and pre-procedure medications were administered. After a digital rectal examination of the ano-rectum, the video colonoscope was inserted into the rectum and advanced through the colon to the cecum. The colonoscope was slowly withdrawn in a retrograde panoramic fashion and the colon mucosa was carefully examined including a retroflexed view of the rectum. Findings and interventions are described below. Procedure Difficulty: without difficulty Findings: Terminal Ileum: Not evaluated Cecum: Normal Ascending Colon: Normal Transverse Colon: Normal Descending Colon: Moderate diverticulosis Sigmoid Colon: Two 3-5 mm sessile polyps - removed with a cold biopsy. Moderate diverticulosis Rectum: A 3-4 mm sessile polyp - removed with a cold biopsy Ano-rectum: Moderate internal hemorrhoids Colon preparation: Good after copious irrigation and Fair in the right colon. There was a layer of adherent stool in the right colon which could not be cleared despite copious irrigation [place] Bowel Preparation Scale Right colon; 1 Transverse colon: 2 Left colon; 2 (0 = Unprepared colon segment with mucosa not seen due to solid stool that cannot be cleared. 1 = Portion of mucosa of the colon segment seen, but other areas of the colon segment not well seen due to staining, residual stool and/or opaque liquid. 2 = Minor amount of residual staining, small fragments of stool and/or opaque liquid, but mucosa of colon segment seen well. 3 = Entire mucosa of colon segment seen well with no residual staining, small fragments of stool or opaque liquid) Impression and Post Procedure Diagnosis: Colonoscopy Findings: Three small polyps were removed Moderate diverticulosis seen in the left colon Moderate hemorrhoids on retroflexed exam. Plan: Pt has a FU appointment on 05/21/24 with Marisela Colon NP Repeat Colonoscopy in 1 year due to fair prep in the right colon (Dulcolax 2 tablets daily starting 5 days prior to next colonoscopy appointment). Above findings were reviewed with the patient and relevant handouts were given and the discharge area.
[2024-05-07 11:44] VITALS: BP 98/51; PULSE 66; RESP 15; TEMP 36.4; O2SAT 97
[2024-05-07 11:59] VITALS: BP 108/64; PULSE 59; RESP 16; TEMP 36.4; O2SAT 97
== END 2024-05-07 12:28 | disposition home or self-care (01) ==
PROVIDERS: Anesthesiology; PCP Family Medicine; Visit Provider Internal Medicine Gastroenterology
PROC: 0DJD8ZZ Inspection of Lower Intestinal Tract, Via Natural or Artificial Opening Endoscopic (ICD-10-PCS; CPT 45378; principal; 2024-05-07 10:10)
DX: Z12.11 Encounter for screening for malignant neoplasm of colon (principal); K63.5 Polyp of colon; K62.1 Rectal polyp; K57.30 Diverticulosis of large intestine without perforation or abscess without bleeding; K64.8 Other hemorrhoids; J45.909 Unspecified asthma, uncomplicated; Z79.899 Other long term (current) drug therapy; F17.210 Nicotine dependence, cigarettes, uncomplicated
CPT/HCPCS: 45380; 81025; 88305; J2704

== ENCOUNTER → 2024-05-07 09:39 | Outpatient (BNV) | payer OTHER, SELFPAY | PROVIDERS: PCP Family Medicine; Visit Provider Internal Medicine Gastroenterology | DX: Z12.11 Encounter for screening for malignant neoplasm of colon (principal); K63.5 Polyp of colon; K62.1 Rectal polyp; K57.90 Diverticulosis of intestine, part unspecified, without perforation or abscess without bleeding | CPT/HCPCS: 45380 ==

== ENCOUNTER 2024-10-22 10:15 | Outpatient (REF) | payer OTHER, SELFPAY ==
[2024-10-22 15:13] LABS: Appearance Urine Cloudy; Color Urine Yellow; Glucose Urine UA Negative (Negative); Leukocyte Esterase Urine Trace (Negative); Nitrite Urine Negative (Negative); Specific Gravity - Urine 1.025 (1.005-1.025); UMIC TRIGGER UA YES; Urine Blood Negative (Negative); Urine Ketones Trace mg/dL (Negative); Urine Protein Trace mg/dL (Neg-Trace)
[2024-10-22 15:30] LABS: Albumin Level 4.4 g/dL (3.5-5.0); Anion Gap 12 (12-20); Aspartate Amino Transferase 29 U/L (5-31); Bilirubin Total 0.5 mg/dL (0.0-1.0); Blood Urea Nitrogen 9 mg/dL (9-16); Calcium 9.4 mg/dL (8.4-10.2); Carbon Dioxide 24 mmol/L (22-29); Chloride 107 mmol/L (96-108); Cholesterol 218 mg/dL (<200); Estimated Glomerular Filt Rate > 60; Glucose Fasting 104 mg/dL (60-99); HDL Cholesterol 89 mg/dL (>40); LDL Cholesterol Calculated 113 mg/dL (<100); Potassium 4.1 mmol/L (3.3-5.1); Sodium 139 mmol/L (135-145); Total Protein 7.3 g/dL (6.5-8.0); Triglycerides 83 mg/dL (<150)
[2024-10-22 15:58] LABS: Alanine Aminotransferase 23 U/L (0-31); Alkaline Phosphatase 87 U/L (39-117)
[2024-10-22 15:59] LABS: Bacteria Urine 4+ (None Seen); Hyaline Casts Urine 0-2 /LPF (0-2); RBC Urine 0-2 /HPF (0-2); WBC Urine 0-5 /HPF (0-5)
[2024-10-22 16:27] LABS: Creatinine Urine 308.54 mg/dL; Microalbum/Creatinine Ratio Ur 6.4 ug/mg cr (<30)
== END 2024-10-22 10:16 | disposition home or self-care (01) ==
LOC: HO.WFDLDS 10:15
PROVIDERS: Visit Provider Family Medicine
DX: Z00.00 Encounter for general adult medical examination without abnormal findings (principal); I10 Essential (primary) hypertension
CPT/HCPCS: 36415; 80053; 80061; 81001; 81003; 82043; 82570; 84443

== ENCOUNTER 2024-10-29 15:57 | Outpatient (AMB) | payer OTHER, SELFPAY ==
--- NOTE | 2024-10-29 16:12 | A.OFFPC_ITS ---
Vital Signs 10/29/24 16:19 Height 5 ft 7 in Weight 192 lb 4 oz BMI 30.1 BP 106/78 Blood Pressure Location Rt brachial Position Sitting Respiration 16 Pulse 92 Pulse Source Palpation Intake Visit Reasons: EST/CPE WITH LABS Intake Note: cpe with follow up labs Allergies Seasonal Allergies Allergy (Mild, Verified 10/29/24 16:13) Itchy Eyes No Known Drug Allergies Allergy (Unknown, Verified 10/29/24 16:13) Unknown Medication List - Last Reconciled 10/29/24 by Kip Eason MD albuterol sulfate 90 mcg/actuation (Ventolin HFA) 2 puffs inhalation Q4-6H PRN 30 days Tobacco use date assessed: 10/29/24 Dental Screening Dental Screen Date: 10/29/24 Did you have a dental visit in the last 12 months?: Yes Did you have a dental problem in the last 6 months where you did not have access to dental care?: No Was dental information given to patient?: Patient has dentist HPI EST/CPE WITH LABS HPI Details 49 y/o female presents for a CPE with f/ u labs and health maintenance. Labs drawn 10/22/24. Reviewed labs with pt. Elevated fasting glucose of 104. A1c today 10/29/24 is 5.5%. Triglycerides 83. TC 218. LDL 113. HDL 89. Reports GERD once a week. Up to date on her mammogram. HPI Comments History of Present Illness Details Documentation assistance for Kip Eason MD, was provided by Mike Butler,? Pain Management Nurse Practitioner on 10/29/2024 at 4:26 PM EST. I, Dr. Eason, have read, observed, and verified documentation. ?? 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 1. Little interest or pleasure in doing things: not at all 2. Feeling down, depressed, or hopeless: not at all 3. Trouble falling or staying asleep, or sleeping too much: several days 4. Feeling tired or having little energy: several days 5. Poor appetite or overeating: not at all 6. Feeling bad about yourself - or that you are a failure or have let yourself or your family down: not at all 7. Trouble concentrating on things, such as reading the newspaper or watching television: not at all 8. Moving or speaking so slowly that other people could have noticed. Or the opposite - being so fidgety or restless that you have been moving around a lot more than usual: not at all 9. Thoughts that you would be better off or of hurting yourself in some way: not at all Total score: 2 Depression Screening Interpretation: Negative Depression Screening Done: Yes 71295 - PHQ-9 Billing: Yes Source: Developed by Drs. Carrington Cabrera, Alanna Lemos, Tiburcio Bowser and colleagues, with an educational priya from [employer]. Thrive Questionnaire Date Thrive assessed: 10/29/24 I am a: Patient What is your living situation today?: I have a steady place to live Within the past 12 months, did the food you bought not last and you didn't have the money to get more?: Never true Within the past 12 months, did you worry whether your food would run out before you got money to buy more?: Never true Do you have trouble paying for medicines?: No Do you have trouble getting transportation to medical appointments?: No Do you have trouble paying your heating and electricity bill?: No Do you have trouble taking care of your child, family member or friend?: No Do you have trouble with day-to-day activities such as bathing, preparing meals, shopping, managing finances, etc.?: No Are you currently unemployed and looking for a job?: No Are you interested in more education?: No Please select the resources that you would like help with: None Currently or been in a relationship where the following occur: No concerns reported THRIVE Score: 0 AUDIT C Alcohol Use Questionnaire (AUDIT-C) 1. How often do you have a drink containing alcohol?: 2-3 times a week 2. How many drinks containing alcohol do you have on a typical day when you are drinking?: 3 or 4 3. How often do you have six or more drinks on one occasion?: Monthly Total Score: 6 MARYAM-7 AMB Questionnaire MARYAM-7 Date MARYAM - 7 assessed: 10/29/24 Feeling nervous, anxious, or on edge: 1 = Several days Not being able to stop or control worryin = Several days Worrying too much about different things: 1 = Several days Trouble relaxin = Several days Being so restless that it is hard to sit still: 0 = Not at all Becoming easily annoyed or irritable: 0 = Not at all Feeling afraid as if something awful might happen: 0 = Not at all Total MARYAM-7 score (0-4 normal; 5-9 mild; 10-14 moderate; 15-21 severe): 4 Source: Developed by Drs. Carrington Cabrera, Alanna Lemos, Tiburcio Bowser and colleagues, with an educational priya from [employer]. MARYAM-7 Assessment Billing MARYAM-7 Assessment Tool: MARYAM-7 Assessment 66742 Review of Systems Const Denies chills, Denies fatigue, Denies fever(s), Denies headache(s) and Denies weakness Eyes Denies change in vision ENT Denies dizziness, Denies headache(s), Denies hearing loss, Denies nasal congestion, Denies sinus pain, Denies sinus pressure and Denies sore throat Card Denies chest pain, Denies lightheadedness, Denies dyspnea and Denies other (palpitations) Resp Denies cough, Denies dyspnea and Denies wheezing GI Denies abdominal pain, Denies melena, Denies hematochezia, Denies change in bowel habits, Denies dyspepsia and Denies nausea Denies hematuria and Denies dysuria Musc Denies abnormal gait, Denies myalgias, Denies arthralgias, Denies numbness and Denies tingling Skin/Breast Denies rash, Denies unusual bruising and Denies wounds Neuro Denies abnormal gait, Denies dizziness, Denies headache(s), Denies memory loss, Denies numbness, Denies Sensory deficit (Neuro), Denies tingling and Denies weakness Psych Denies anxiety, Denies depression and Denies memory loss Endo Denies cold intolerance, Denies fatigue, Denies heat intolerance, Denies polydipsia and Denies polyuria Leland/Lymph Denies easy bleeding and Denies easy bruising Aller/Immun Denies wheezing Physical exam (Primary Care) Vital Signs: Last Vital Signs Pulse 92 10/29/24 16:19 Resp 16 10/29/24 16:19 BP 106/78 10/29/24 16:19 BMI result Body Mass Index 30.1 Tobacco/Smoking Status: Tobacco use Status Tobacco use date assessed 10/29/24 10/29/24 16:23 Patient Tobacco Use Status Current everyday Tobacco 10/29/24 16:12 Tobacco use type Cigarette 10/29/24 16:12 e-Cigarette/Vaping Use Never Used 10/29/24 16:12 PHQ-9: PHQ-9 Score PHQ-9: Total score 2 10/29/24 16:26 Depression Screening Interpretation: Negative Thrive Assessment: Date of Thrive Assessment Date Thrive assessed 10/29/24 10/29/24 16:23 Currently or been in a relationship where the following occur: No concerns reported Const General: no acute distress, well developed, alert and awake Nutritional Appearance: well nourished Orientation/consciousness: patient oriented x3 HENMT Head: Yes normocephalic and Yes atraumatic Ears: hearing grossly normal bilaterally and TM's normal bilaterally General nose exam: Normal external nose present and Normal nares present Mouth: Normal oral and palatal mucosa present and moist mucous membranes Teeth and gingiva: dentition normal Throat: Yes posterior oropharynx normal Eyes General: appearance normal, both eyes and all related structures Pupils: Equal, round and reactive pupils present and Pupil accommodation reflex normal EOM: EOMs intact bilaterally Neck Neck: Yes normal visual inspection, Yes no lymphadenopathy and Yes trachea midline Thyroid: Thyroid normal Carotids: no bruits Lymphatic: no lymphadenopathy noted Chest Chest palpation & inspection: normal inspection of the chest Resp Effort & Inspection: normal respiratory effort Auscultation: clear to auscultation bilaterally Cardio Rate: regular rate Rhythm: regular rhythm Heart sounds: S1 normal heart sound present, S2 normal heart sound present, no gallops, no murmurs and no rubs Bruits: no abdominal aortic bruits and no carotid bruits GI Palpation (GI): No Abdominal aortic bruit present, Soft to palpation, nontender, No hepatosplenomegaly present and No Rebound tenderness present Auscultation: normal bowel sounds General: Yes no CVA tenderness Back/Spine/Pelvis Back: no CVA tenderness Cervical Spine: cervical ROM normal and No Cervical spine tenderness Thoracic/Lumbar Spine: thoraco-lumbar ROM normal, No pain with thoraco-lumbar ROM, No thoracic spinal tenderness and No lumbar spinal tenderness Skin Lesions: no lesions Rashes: no rashes Trauma: no lacerations or abrasions Wounds: no wounds Nails: normal Neuro General: patient oriented x3 Cranial nerves: Yes Equal, round and reactive pupils present Cognition (Neuro): normal cognition Gait exam (Neuro): Normal gait present Motor exam (neuro): 5/5 motor strength present throughout Sensory Exam: No Sensory deficit (Neuro) Deep tendon reflexes (DTR's): Right patellar reflex intensity grade: 2+ and Left patellar reflex intensity grade: 2+ Extrem General: Yes normal to inspection and No edema Psych Appearance: grossly normal Affect: normal affect Attitude: cooperative Thought process: Normal thought process present Results AMB Hemoglobin A1c AMB Hemoglobin A1c 5.5 % Last Edit by Claudine Falk CMA on 10/29/24 17:06 Coding Level of Care Code Est Pt Level 3 (86069) Est Pt Prev Care 40-64y(43148) Diagnoses Adult general medical exam Z00.00 Elevated fasting glucose R73.01 GERD (gastroesophageal reflux disease) K21.9 Screening for cervical cancer Z12.4 Breast cancer screening by mammogram Z12.31 Screening for colon cancer Z12.11 Additional Codes MARYAM-7 Assessment Billing - MARYAM-7 Assessment Tool: MARYAM-7 Assessment 56236 ([id number]) PHQ-9 - 67828 - PHQ-9 Billing: Yes ([id number]) Assessment & Plan Assessment & Plan (1) Adult general medical exam: Code(s): Z00.00 - Encounter for general adult medical examination without abnormal findings Category: Medical Plan: 49-year-old?female?presents?for?complete?physical?exam Encouraged?healthy?diet?with?active?lifestyle?and?plenty?of?exercise (2) Elevated fasting glucose: Code(s): R73.01 - Impaired fasting glucose Category: Medical Plan: A1c?5.5%?is?at?top?of?normal?range Encouraged?a?diet?lower?in?sugars?and?starches,?exercise?and?weight?loss (3) GERD (gastroesophageal reflux disease): Code(s): K21.9 - Gastro-esophageal reflux disease without esophagitis Category: Medical Plan: Frequent?GERD Will?give?her?famotidine?trial She?is?being?followed?by?gastroenterology?for?colon?polyps?has?appointment?in?[facility] Referred?to?GI?for?follow-up?polyps?and?GERD (4) Screening for cervical cancer: Code(s): Z12.4 - Encounter for screening for malignant neoplasm of cervix Category: Medical Plan: Abnormal?cells?on?last?Pap?smear?and?follow?q.6?months Follow-up?with??[facility]?as?recommended (5) Breast cancer screening by mammogram: Code(s): Z12.31 - Encounter for screening mammogram for malignant neoplasm of breast Category: Medical Plan: Mammogram?last?October?was?within?normal?limits?and?she?has?another?appointme nt?this?coming?October. (6) Screening for colon cancer: Code(s): Z12.11 - Encounter for screening for malignant neoplasm of colon Category: Medical Plan: As?above,?has?an?appointment?for?follow-up?colon?polyps?in?December Follow-up?with?Gastroenterology?as?recommended Orders: Orders Lipid Panel Today Z00.00 - Encounter for general adult medical examination without abnormal findings AMB Hemoglobin A1c Today R73.01 - Impaired fasting glucose Hemoglobin A1c Today K21.9 - Gastro-esophageal reflux disease without esophagitis, R73.01 - Impaired fasting glucose Comprehensive [place]. Panel Fast Today Z00.00 - Encounter for general adult medical examination without abnormal findings Microalbumin, Random (w Creat) Today I10 - Essential (primary) hypertension UA and rflx microscopic Today Z00.00 - Encounter for general adult medical examination without abnormal findings Referrals Gastroenterology Referral K21.9 - Gastro-esophageal reflux disease without esophagitis, K63.5 - Polyp of colon Medications: New famotidine 20 mg PO BID 30 days 60 tabs 2RF Refilled albuterol sulfate 90 mcg/actuation (Ventolin HFA) 2 puffs inhalation Q4-6H 30 days PRN 8.5 grams 3RF shortness of breath or wheezing
[2024-10-29 16:19] VITALS: BP 106/78; PULSE 92; RESP 16; BMI 30.1
== END 2024-10-29 17:05 | disposition home or self-care (01) ==
PROVIDERS: PCP Family Medicine; Visit Provider Family Medicine
DX: Z00.00 Encounter for general adult medical examination without abnormal findings (principal); R73.01 Impaired fasting glucose; K21.9 Gastro-esophageal reflux disease without esophagitis; Z12.31 Encounter for screening mammogram for malignant neoplasm of breast; Z12.11 Encounter for screening for malignant neoplasm of colon

== ENCOUNTER 2025-03-11 07:52 | Outpatient (AMB) | payer OTHER, SELFPAY ==
--- OUTSIDE RECORDS SUMMARY | 2025-03-11 07:54 | XMS_ITS | Encounter Summary ---
Author Organization [facility] Address [address] [place] [address] Care Team Providers Care Band Presser Name Role Phone Chuy Martinez MD Primary Care Provider [phone] Encounter Details Date Type Department Care Team (Latest Contact Info) Description 01/01/2025 Lab Requisition [facility] - Main Lab [address] [place] [address] Kip Katz MD [address] [address] Encounter for gynecological examination (general) (routine) without abnormal findings Social History Tobacco Use Types Packs/Day Years Used Date Smoking Tobacco: Every Day Cigarettes Smokeless Tobacco: Never Alcohol Use Standard Drinks/Week Comments Yes 0 (1 standard drink = 0.6 oz pur e alcohol) Comments Unknown Sex and Gender Information Value Date Recorded Sex Assigned at Not on file Legal Sex Female 10:17 AM EST Gender Identity Not on file Sexual Orientation Not on file documented as of this encounter Plan of Treatment Not on file documented as of this encounter Procedures Procedure Name Priority Date/Time Associated Diagnosis Comments PAP SMEAR Routine 12/31/2024 12:00 AM EST Encounter for gynecological examination (general) (routine) without abnormal findings documented in this encounter Results * Pap smear (12/31/2024 12:00 AM EST) Interpretation Negative for intraepithelial lesion or malignancy 01/07/2025 4:39 PM EDT [facility] Clinical Information 2023 LSIL 01/07/2025 4:39 PM EDT [facility] General Categorization Negative 01/07/2025 4:39 PM EDT [facility] Other Findings Shift in carlos suggestive of bacterial vaginosis 01/07/2025 4:39 PM EDT [facility] LMP 01/07/2025 4:39 PM EDT [facility] Comment:08/2024 Specimen Adequacy Satisfactory for evaluation, endocervical/nielsen sformation zone component present 01/07/2025 4:39 PM EDT [facility] Pap Methodology Liquid Based Pap Test 01/07/2025 4:39 PM EDT [facility] Disclaimer Note: This pap test could not be imaged utilizing the [employer] System and required a manual review. The Pap test is a screening test which carries an inherent false negative rate. These test results should be correlated with the patient's clinical findings and history. This Pap test was processed using an automated screening system. Technical cytopathology services provided by [facility], at [address] [place] [address] (CLIA # [id number]/Daisy Jorge MD, 3D Artist.) 01/07/2025 4:39 PM [facility] Console Pap Interpretation Reported 01/07/2025 4:39 PM [facility] Brushing/Spatula Cervix uteri structure / Unknown 12/31/2024 01/01/2025 8:31 AM EST us Kip Katz MD LAB CYTOLOGY ORDERABLES Final Result [facility] [address] [place] [address], documented in this encounter Visit Diagnoses Diagnosis Encounter for gynecological examination (general) (routine) without abnormal findings documented in this encounter Care Teams Band Presser Relationship Specialty Start Date End Date Chuy Martinez MD [address] [place] [id number] PCP - General Internal Medicine 04/14/21 documented as of this encounter
--- OUTSIDE RECORDS SUMMARY | 2025-03-11 07:54 | XMS_ITS | Clinical Summary ---
Author Organization [address] Address [address] [place] [id number] Phone Care Team Providers Care Kst Operator Name Role Phone Chuy Martinez MD Primary Care Provider [phone] Allergies No known active allergies Medications nicotine (NICODERM CQ) 14 mg/[address] 1 Patch onto the skin daily. 2 Active albuterol HFA (PROAIR HFA ; PROVENTIL HFA ; VENTOLIN HFA) 90 mcg/actuation inhaler Inhale 2 Puffs into the lungs every 4 hours as needed for Shortness of Breath. 4 Active albuterol 2.5 mg /3 mL (0.083 %) nebulizer solution Take 1 Vial by nebulization every 4 hours as needed for Wheezing. 4 Active melatonin 3 mg capsule Take 10 mg by mouth. 3 Active levonorgestrel- ethinyl estradiol (AVIANE,ALESSE) 0.1-20 mg-mcg per tablet Take 1 Tab by mouth daily. Active Active Problems Problem Noted Date Diagnosed Date Asthma 11/09/2024 Plantar fasciitis of right foot 11/28/2017 Migraines 11/28/2017 Overview (11/09/2024): Not bothering for the past 5 years Overweight (BMI 25.0-29.9) 06/18/2013 Insomnia 06/18/2013 Encounters Date Type Department Care Team Description 01/01/2025 Lab Requisition [facility] - Main Lab [address] [facility] [place] [address] Kip Katz MD Encounter for gynecological examination (general) (routine) without abnormal findings from Last 3 Months Immunizations Name Administration Dates Next Due Influenza trivalent, with pr eservative (Fluzone; Afluria) 6mo and older 07/08/2020,08/18/2015,08/27/2014 Pfizer SARS-CoV-2 COVID-19, mRNA, LNP-S, preservative free 02/07/2021,01/17/2021 Pneumococcal polysaccharide 23 valent (Pneumovax 23) 2yo and older 06/18/2013 Tdap Tetanus diptheria acell ular pertussis (Boostrix; Adacel) 7yo and older 06/18/2013 Surgical History Surgery Date Site/Laterality Comments WISDOM TOOTH EXTRACTION PROCEDURE: HISTORICAL WISDOM TEETH EXTRACTION CERVICAL BIOPSY W/ LOOP ELECTRODE EXCISION PROCEDURE: CERVIAL LEEP CONE BIOPSY [facility] PATHOLOGY EX Medical History Medical History Date Comments Asthma DX:Asthma Migraines 11/28/2017 DX:Migraines; CO MMENT: Not bothering for the past 5 years Plantar fasciitis of right foot 11/28/2017 DX:Plantar fasciitis of right foot Family History Medical History Relation Name Comments Hyperlipidemia Father Stroke Maternal Grandmother age -90 Hyperlipidemia Mother No Known Problems Sister 1 No Known Problems Sister 2 Relation Name Status Comments Father Alive high BP, thyroi d Maternal Grandfather Maternal Grandmother stroke Mother Alive high BP, thyroi d Paternal Grandfather Paternal Grandmother Sister 1 Alive anxiety,depress ion Sister 2 Alive healthy Social History Tobacco Use Types Packs/Day Years [...] on file Sexual Orientation Not on file Obstetrics History Plan of Treatment Health Maintenance Due Date Last Done Comments Breast Cancer Screening 1974 Hepatitis B Vaccines (1 of 3 - 19+ 3-dose series) 1993 Pneumococcal Vaccine: 50+ Years (2 of 2 - PCV) 06/18/2014 06/18/2013 Pneumococcal Vaccine: Pediatrics (0 to 5 Years) and At-Risk Patients (6 to 64 Years) (2 of 2 - PCV) 06/18/2014 06/18/2013 Colorectal Cancer Screening: Colonoscopy 09/28/2022 Depression Screening 09/28/2022 HIV Screening 09/28/2022 Hepatitis C Screening 09/28/2022 Social Influencers of Health Screening 09/28/2022 DTaP,Tdap,and Td Vaccines (2 - Td or Tdap) 06/18/2023 06/18/2013 COVID-19 Vaccine (3 - 2023-2 5 season) 2024 02/07/2021, 01/17/2021 Zoster Vaccines (1 of 2) 2024 Influenza Vaccine (Season Ended) 2025 07/08/2020, 08/18/2015, 08/27/2014 Cholesterol Screening (Lipid Panel) 05/11/2026 05/11/2021 Cervical Cancer Screening: P ap Smear 01/01/2028 12/31/2024, 09/25/2018, 09/25/2018 HIB Vaccines Aged Out No longer eligi ble based on patient's age to complete this topic HPV Vaccines Aged Out No longer eligi ble based on patient's age to complete this topic Hepatitis A Vaccines Aged Out No long er eligible based on patient's age to complete this topic IPV Vaccines Aged Out No longer eligi ble based on patient's age to complete this topic MMR Vaccines Aged Out No longer eligi ble based on patient's age to complete this topic Meningococcal ACWY Vaccine Aged Out N o longer eligible based on patient's age to complete this topic Meningococcal B Vaccine Aged Out No l onger eligible based on patient's age to complete this topic RSV Immunization Patients Under 20 months Aged Out No longer eligible b ased on patient's age to complete this topic Varicella Vaccines Aged Out No longer eligible based on patient's age to complete this topic Procedures Procedure Name Priority Date/Time Associated Diagnosis Comments PAP SMEAR Routine 12/31/2024 12:00 AM EST Encounter for gynecological examination (general) (routine) without abnormal findings LIPID PANEL Routine 05/11/2021 from Last 3 Months or Most Recently Relevant to Health Maintenance Results * Pap smear (12/31/2024 12:00 AM EST) Interpretation Negative for intraepithelial lesion or malignancy 01/07/2025 4:39 PM EDT [facility] Clinical Information 2023 LSIL 01/07/2025 4:39 PM EDT [facility] General Categorization Negative 01/07/2025 4:39 PM EDT [facility] Other Findings Shift in carlos suggestive of bacterial vaginosis 01/07/2025 4:39 PM EDT [facility] LMP 01/07/2025 4:39 PM EDT [facility] Comment:08/2024 Specimen Adequacy Satisfactory for evaluation, endocervical/nielsen sformation zone component present 01/07/2025 4:39 PM EDT [facility] Pap Methodology Liquid Based Pap Test 01/07/2025 4:39 PM EDT [facility] Disclaimer Note: This pap test could not be imaged utilizing the [employer] System and required a manual review. The Pap test is a screening test which carries an inherent false negative rate. These test results should be correlated with the patient's clinical findings and history. This Pap test was processed using an automated screening system. Technical cytopathology services provided by [facility], at [address] [place] [id number] (CLIA # [id number]/Daisy Jorge MD, Light Armored Vehicle Officer.) 01/07/2025 4:39 PM [facility] Console Pap Interpretation Reported 01/07/2025 4:39 PM [facility] Brushing/Spatula Cervix uteri structure / Unknown 12/31/2024 01/01/2025 8:31 AM EST us Kip Katz MD LAB CYTOLOGY ORDERABLES Final Result [facility] [address] [place] [address], * (ABNORMAL) Lipid panel (05/11/2021) LDL/HDL Ratio 3 0 - 4 Triglycerides 91 0 - 150 mg/dL Cholesterol 191 0 - 200 mg/dL HDL 71 >=40 mg/dL LDL Cholesterol 102(A) 0 - 100 mg/dL Blood Venous blood specimen / Unknown us Historical Provider LAB BLOOD ORDERABLES Kendra l Result from Last 3 Months or Most Recently Relevant to Health Maintenance Care Teams Kst Operator Relationship Specialty Start Date End Date Chuy Martinez MD [address] [place] [phone] PCP - General Internal Medicine 04/14/21
--- NOTE | 2025-03-11 08:05 | MHC.OFFVIS ---
Vital Signs 03/11/25 08:10 Height 5 ft 7 in Weight 180 lb BMI 28.2 BP 130/72 Blood Pressure Location Rt brachial Position Sitting Pulse 64 Pulse Source Pulse Oximeter Pulse Oximetry (%) 99 Oxygen Delivery Method Room Air Intake Visit Reasons: 1 year follow up - discuss colonoscopy Intake Note: ESTABLISHED PATIENT for GERD mgmt. K[facility]IS 12/12/2023. Chief Complaint; Pt denies any GI sx or concerns at this time. Vocational Guidance Counselor Required: No Accompanied by: Self / Same As Patient Allergies Seasonal Allergies Allergy (Mild, Verified 03/11/25 08:06) Itchy Eyes No Known Drug Allergies Allergy (Unknown, Verified 03/11/25 08:06) Unknown HPI HPI 1 year follow up - discuss colonoscopy: Details: LAST VISIT: Screening for colon cancer Plan Patient denies any GI, cardiac or respiratory symptoms.? Denies any history of sleep apnea.? No history infectious diseases in the past or present.? Not on any anticoagulation therapy.? No family or personal history of colon cancer or polyps.? Patient denies melena, hematochezia, unintentional weight loss or ribbon like stools.? Discussed at length the pre-procedure,? prep, diet & medications as well as what to expect prior, during and after the procedure.?? Stressed the importance of good bowel prep. ?Recommended the use of Vaseline or Calmoseptine OTC & baby wipes with bowel movements to promote comfort.? ?Patient verbalizes understanding and agrees to plan of care.? She was given the opportunity to ask questions and all questions answered.? We will see her after the procedure.? Medications New bisacodyl (Dulcolax (bisacodyl)) take 4 tabs at noon the day before your colonoscopy 20 mg (4 x 5 mg) PO ONCE 1 day 4 tabs 0RF Z12.11 polyethylene glycol 3350 (Miralax) As directed by gastroenterology department at [facility] 238 grams PO ONCE 238 grams 0RF Z12.11 COLONOSCOPY Findings: Terminal Ileum: Not evaluated Cecum: Normal Ascending Colon: Normal Transverse Colon: Normal Descending Colon: Moderate diverticulosis Sigmoid Colon: Two 3-5 mm sessile polyps - removed with a cold biopsy. Moderate diverticulosis Rectum: A 3-4 mm sessile polyp - removed with a cold biopsy Ano-rectum: Moderate internal hemorrhoids Colon preparation: Good after copious irrigation and Fair in the right colon. There was a layer of adherent stool in the right colon which could not be cleared despite copious irrigation [place] Bowel Preparation Scale Right colon; 1 Transverse colon: 2 Left colon; 2 (0 = Unprepared colon segment with mucosa not seen due to solid stool that cannot be cleared. 1 = Portion of mucosa of the colon segment seen, but other areas of the colon segment not well seen due to staining, residual stool and/or opaque liquid. 2 = Minor amount of residual staining, small fragments of stool and/or opaque liquid, but mucosa of colon segment seen well. 3 = Entire mucosa of colon segment seen well with no residual staining, small fragments of stool or opaque liquid) Impression and Post Procedure Diagnosis: Colonoscopy Findings: Three small polyps were removed Moderate diverticulosis seen in the left colon Moderate hemorrhoids on retroflexed exam. Plan: Repeat Colonoscopy in 1 year due to fair prep in the right colon (Dulcolax 2 tablets daily starting 5 days prior to next colonoscopy appointment). Above findings were reviewed with the patient and relevant handouts were given and the discharge area. PATHOLOGY RESULTS Diagnosis A. Colon, sigmoid, polypectomies (2): - Hyperplastic mucosal polyp. - Colonic mucosa with mild surface hyperplastic changes and prominent smooth muscle. - Multiple additional levels examined. B. Rectum, polypectomy: Hyperplastic mucosal polyp. Comment: The prominent smooth muscle in part A raises the possibility of a leiomyoma; the differential includes tangentially sectioned muscularis mucosae TODAY'S VISIT Patient is here today for follow-up and to discuss going for colonoscopy. Patient had colonoscopy in April of 2020 for had couple polyps, hyperplastic mucosal polyp no tubular adenoma, however due to suboptimal prep patient was recommended to return for colorectal screening in 1 year. Patient denies any issues with anesthesia in the past. No history of sleep apnea. Patient is not on any anticoagulation medication. Patient denies any cardiac or respiratory symptoms. Feels well. Occasional acid reflux which she takes [id number] Pepcid for. Patient reports that she change her diet and symptoms are rare. 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 Cognitive needs: No Hearing needs: No Vision needs: Yes Physical Exam Vital Signs: Last Vital Signs Pulse 64 03/11/25 08:10 BP 130/72 03/11/25 08:10 Pulse Ox 99 03/11/25 08:10 Oxygen Delivery Method Room Air 03/11/25 08:10 BMI result Body Mass Index 28.2 Assessment & Plan Assessment & Plan (1) GERD (gastroesophageal reflux disease): Code(s): K21.9 - Gastro-esophageal reflux disease without esophagitis Category: Medical Qualifiers: Esophagitis presence: esophagitis presence not specified Qualified Code(s): K21.9 - Gastro-esophageal reflux disease without esophagitis (2) Screening for colon cancer: Code(s): Z12.11 - Encounter for screening for malignant neoplasm of colon Category: Medical Plan Patient will continue avoiding dietary triggers. May use Pepcid as needed. Patient reports symptoms rare now. Patient is due to go for colonoscopy again in April. Will be scheduled with Dr. Renee. Denies any issues with anesthesia in the past. No history of sleep apnea. Not on any anticoagulation medication. What to expect before during and after procedure discussed with patient. Stressed importance of good bowel prep and clear liquid diet. Patient will take Dulcolax for 1 week before the procedure with to do collapse every evening and for Dulcolax next day before procedure. She is agreeable to current plan of care and verbalizes understanding of instructions. She was given the opportunity to ask questions and all questions answered. Thank you for allowing me to participate in her care Medications: New polyethylene glycol 3350 (Miralax) As directed by gastroenterology department at [facility] 238 grams PO ONCE 238 grams 0RF Z12.11 - Encounter for screening for malignant neoplasm of colon bisacodyl (Dulcolax (bisacodyl)) Start taking 2 tablet every night 7 days before the procedure and 1 day before procedure take 4 tablets at noon time followed by MiraLax prep 10 mg (2 x 5 mg) PO BEDTIME 16 tabs 0RF Z12.11 - Encounter for screening for malignant neoplasm of colon Coding Level of Care Code Est Pt Level 3 (03679) Diagnoses Gastroesophageal reflux disease, unspecified whether esophagitis present K21.9 Esophagitis presence: esophagitis presence not specified Screening for colon cancer Z12.11 Time Spent (min) 30 Comment 20 minutes spent with patient and additional 10 minutes spent reviewing her records
[2025-03-11 08:10] VITALS: BP 130/72; PULSE 64; O2SAT 99; BMI 28.2
== END 2025-03-11 08:45 | disposition home or self-care (01) ==
LOC: HO.HGI 07:53
PROVIDERS: PCP Family Medicine; Visit Provider Nurse Practitioner Family
DX: K21.9 Gastro-esophageal reflux disease without esophagitis (principal); Z12.11 Encounter for screening for malignant neoplasm of colon
CPT/HCPCS: 99213

== ENCOUNTER → 2025-03-11 07:52 | Outpatient (BNVA) | payer OTHER, SELFPAY | PROVIDERS: PCP Family Medicine; Visit Provider Nurse Practitioner Family | DX: Z12.11 Encounter for screening for malignant neoplasm of colon (principal); K21.9 Gastro-esophageal reflux disease without esophagitis | CPT/HCPCS: 99212 ==

== ENCOUNTER 2025-05-27 07:17 | Day surgery (SDC) | payer OTHER, SELFPAY ==
--- OUTSIDE RECORDS SUMMARY | 2025-04-24 08:31 | XMS_ITS | Encounter Summary ---
Author Organization [facility] Address [address] [place] [address] Care Team Providers Care Hospital Product Specialist Name Role Phone Chuy Martinez MD Primary Care Provider [phone] Encounter Details Date Type Department Care Team (Latest Contact Info) Description 01/01/2025 Lab Requisition [facility] - Main Lab [address] [place] [address] Kip Katz MD [address] [address] Encounter for gynecological examination (general) [...] lesion or malignancy 01/07/2025 4:39 PM EDT [facility] Clinical Information 2023 LSIL 01/07/2025 4:39 PM EDT [facility] General Categorization Negative 01/07/2025 4:39 PM EDT [facility] Other Findings Shift in carlos suggestive of bacterial vaginosis 01/07/2025 4:39 PM EDT [facility] LMP 01/07/2025 4:39 PM EDT [facility] Comment:08/2024 Specimen Adequacy Satisfactory for evaluation, endocervical/nielsen sformation zone component present 01/07/2025 4:39 PM EDT [facility] Pap Methodology Liquid Based Pap Test 01/07/2025 4:39 PM EDT [facility] Disclaimer Note: This pap test could not be imaged utilizing the [employer] System and required a manual review. The Pap test is a screening test which carries an inherent false negative rate. These test results should be correlated with the patient's clinical findings and history. This Pap test was processed using an automated screening system. Technical cytopathology services provided by [facility], at [address] [place] [address] (CLIA # [id number]/Daisy Jorge MD, Non Garment Sewing Machine Operator.) 01/07/2025 4:39 PM [facility] Console Pap Interpretation Reported 01/07/2025 4:39 PM [facility] Brushing/Spatula Cervix uteri structure / Unknown 12/31/2024 01/01/2025 8:31 AM EST us Kip Katz MD LAB CYTOLOGY ORDERABLES Final Result [facility] [address] [place] [address], documented in this encounter Visit Diagnoses Diagnosis Encounter for gynecological examination (general) (routine) without abnormal findings documented in this encounter Care Teams Hospital Product Specialist Relationship Specialty Start Date End Date Chuy Martinez MD [address] [place] [id number] PCP - General Internal Medicine 04/14/21 documented as of this encounter
[2025-05-23 14:23] VITALS: BMI 28.2
--- NOTE | 2025-05-27 07:00 | P.CONAN_ITS ---
[facility] Active Problems Active Problems: All Active Problems (Updated 03/11/25 @ 10:29 by Bianca Colon, [facility]) GERD (gastroesophageal reflux disease) (Acute) Dysuria (Acute) Screening for colon cancer (Acute) Low back pain (Acute) Murmur (Acute) Breast cancer screening by mammogram (Acute) Screening for cervical cancer (Acute) Elevated fasting glucose (Acute) Adult general medical exam (Acute) Pain of left heel (Acute) Smoker (Acute) Asthma (Acute) Chest pressure (Acute) Laboratory exam ordered as part of routine general medical examination (Acute) Past Medical History Functional capacity: independent ambulation Patient : No Family History Family History Sister FH: mental illness Family/Other FH: mental illness Family history of problems with anesthesia: No Surgical History Surgical History Hx of colonoscopy [place] teeth extracted History of Problems with Anesthesia: No Social History Social History Housing: House Patient Tobacco Use Status: Current everyday Tobacco user Tobacco use type: Cigarette Cigarette Packs Per Day: 0.5 Cigarettes Per Day: 6 Years Smoked: 31 e-Cigarette/Vaping Use: Never Used service: No Current occupational status: employed 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
--- NOTE | 2025-05-27 07:14 | P.HPSUR_ITS ---
Pre-Procedural Eval Section A - 24 Hr Update-Section A only Date of Service: 05/27/25 The patient is an INPATIENT: No The patient has been examined within 24 hours of the surgical procedure. The History & Physical has been completed within 30 days and I have reviewed it.: No Section B - Complete if H&P > 30 days Chief Complaint: Screening, fair prep on previous colonoscopy Relevant Family History (Specify if Yes): No Relevant Social History: Tobacco Use Present Medications: see Short Stay Collaborative assessment Medical History: Significant History (GERD, low back pain) History of Previous Operations: Relevant previous surgery/procedure and date(s) (Hx of colonoscopy [place] teeth extracted) Allergies: Allergies Allergy/AdvReac Type Severity Reaction Status Date / Time Seasonal Allergies Allergy Mild Itchy Eyes Verified 03/11/25 08:06 Review of Systems Sugical H&P ROS: Negative: Constitution, Cardiovascular, Respiratory and Gastrointestinal Exam Surgical H&P Exam: Normal: Heart, Normal: Lungs, Normal: Extremities and Normal: Abdomen Plan Diagnosis/Plan: Unchanged I have reviewed the history and physical and performed a pertinent physical examination on my patient. No changes have occurred unless specified. Time Spent With Patient Time: Total time managing care of this patient today ____ minutes.
[2025-05-27 07:25] VITALS: BMI 28.2
[2025-05-27 07:42] VITALS: BP 117/62; PULSE 68; RESP 16; TEMP 35.9; O2SAT 100
[2025-05-27 07:53] LABS: UPreg QC Valid YES
[2025-05-27] MEDS: Lactated Ringers 1,000 ML 100 ML IVCONT (07:55)
--- NOTE | 2025-05-27 09:07 | HO.OPN-COLON ---
Colonoscopy Operative Note Operative Note Date of Service: 05/27/25 Narrative: COLONOSCOPY TILL CECUM WITH SNARE POLYPECTOMY Pre-op diagnosis: Colon cancer screening (fair prep on colonoscopy a year ago). Post-op diagnosis:? Colon polyp, Diverticulosis, hemorrhoids Endoscopist:? Deidre Renee MD Anesthesia:?MAC Consent: Indications for the procedure and potential complications of bleeding, perforation, reaction to medications and missed diagnosis were discussed with the patient and informed consent was obtained. Instrument: Olympus PCF H 190 L variable stiffness pediatric colonoscope Monitoring: Vital signs and clinical assessment, intermittent blood pressure monitoring, continuous EKG monitoring, Pulse oximetry and Carbon Dioxide monitoring were done throughout the procedure. Please see anesthesia flowsheet. Colon withdrawl time was 12 minutes. Procedure: The patient was placed in the left lateral decubitis position and pre-procedure medications were administered. After a digital rectal examination of the ano-rectum, the video colonoscope was inserted into the rectum and advanced through the colon to the cecum. The colonoscope was slowly withdrawn in a retrograde panoramic fashion and the colon mucosa was carefully examined including a retroflexed view of the rectum. Findings and interventions are described below. Procedure Difficulty: without difficulty Findings: Terminal Ileum: Not evaluated Cecum: Normal Ascending Colon: Normal Transverse Colon: Normal Descending Colon: Moderate diverticulosis Sigmoid Colon: A 7-8 mm diminutive appearing polyp - removed with a cold snare. Moderate diverticulosis Rectum: Normal Ano-rectum: Moderate internal hemorrhoids Colon preparation: Excellent, after some irrigation. [place] Bowel Preparation Scale Right colon; 3 Transverse colon: 3 Left colon; 3 (0 = Unprepared colon segment with mucosa not seen due to solid stool that cannot be cleared. 1 = Portion of mucosa of the colon segment seen, but other areas of the colon segment not well seen due to staining, residual stool and/or opaque liquid. 2 = Minor amount of residual staining, small fragments of stool and/or opaque liquid, but mucosa of colon segment seen well. 3 = Entire mucosa of colon segment seen well with no residual staining, small fragments of stool or opaque liquid) Impression and Post Procedure Diagnosis: Colonoscopy Findings: One small polyp was removed Moderate diverticulosis seen in the left colon Moderate hemorrhoids on retroflexed exam. Plan: I will send a letter with biopsy results. Repeat Colonoscopy in 5 years if polyps are adenomatous and 10 year if polyps are hyperplastic. Above findings were reviewed with the patient and relevant handouts were given and the discharge area.
[2025-05-27 09:09] VITALS: BP 88/45; PULSE 68; RESP 16; TEMP 36.1; O2SAT 96
[2025-05-27 09:24] VITALS: BP 120/63; PULSE 68; RESP 16; O2SAT 99
[2025-05-27 09:38] VITALS: BP 120/69; PULSE 61; RESP 16; TEMP 36.2; O2SAT 100
--- NOTE | 2025-05-27 13:54 | HO.POSTANES ---
Post Anesthesia Evaluation Post Anesthesia Evaluation Date of Service: 05/27/25 Vital Signs: Vital Signs Temp Pulse Resp BP Pulse Ox O2 Del Method 05/27/25 09:38 97.1 F 61 16 120/69 100 Room Air 05/27/25 09:24 68 16 120/63 99 Room Air 05/27/25 09:09 97 F 68 16 88/45 L 96 Room Air 05/27/25 07:42 96.7 F L 68 16 117/62 100 Room Air Anesthesia: Monitored Mental Status: Awake Pain Control: Satisfactory Nausea/Vomiting: None Hydration: Adequate Anesthesia-Related Issues: No Anes. Related Issues
== END 2025-05-27 09:49 | disposition home or self-care (01) ==
PROVIDERS: Nurse Practitioner; PCP Family Medicine; Visit Provider Internal Medicine Gastroenterology
PROC: 0DJD8ZZ Inspection of Lower Intestinal Tract, Via Natural or Artificial Opening Endoscopic (ICD-10-PCS; CPT 45378; principal; 2025-05-27 08:30)
DX: Z12.11 Encounter for screening for malignant neoplasm of colon (principal); K63.5 Polyp of colon; K57.30 Diverticulosis of large intestine without perforation or abscess without bleeding; K64.8 Other hemorrhoids; J30.2 Other seasonal allergic rhinitis; K21.9 Gastro-esophageal reflux disease without esophagitis; Z79.899 Other long term (current) drug therapy; F17.210 Nicotine dependence, cigarettes, uncomplicated
CPT/HCPCS: 45385; 81025; 88305; J2003; J2704

== ENCOUNTER → 2025-05-27 07:17 | Outpatient (BNV) | payer OTHER, SELFPAY | PROVIDERS: PCP Family Medicine; Visit Provider Internal Medicine Gastroenterology | DX: Z12.11 Encounter for screening for malignant neoplasm of colon (principal); K57.90 Diverticulosis of intestine, part unspecified, without perforation or abscess without bleeding; K64.8 Other hemorrhoids | CPT/HCPCS: 45385 ==